=== PATIENT | male | born 1945 | race Caucasian/White ===

== ENCOUNTER 2023-09-24 14:59 | Outpatient (CLI) | payer OTHER ==
[~2023-09-24] VITALS: Ht 177.8 cm; Wt 108.9 kg
[2023-09-24 15:53] VITALS: PULSE 71; RESP 14; O2SAT 94
[2023-09-24] MEDS: albuterol 2.5 MG/3 ML nebule NEB ONE (15:54)
== END 2023-09-24 23:59 | disposition home or self-care (01) ==
LOC: RT 14:59
PROVIDERS: ATTEND Chiropractor
DX: J42 Unspecified chronic bronchitis (principal)
CPT/HCPCS: 94060; 94760